=== PATIENT | male | born 1995 | race Hispanic/Latino ===

== ENCOUNTER → 2023-11-30 09:07 | Outpatient (REF) | payer OTHER, SELFPAY ==
[2023-11-30 10:22] LABS: Blood Urea Nitrogen 14 mg/dl (9-20); Calcium 9.5 mg/dl (8.4-10.2); Carbon Dioxide 28 mmol/L (22-30); Chloride 104 mmol/L (98-107); Glucose 97 mg/dl (70-99); Potassium 4.5 mmol/L (3.5-5.1); Sodium 137 mmol/L (135-145); eGFR > 60.00
[2023-11-30 10:38] LABS: Free T4 0.86 ng/dl (0.78-2.19); Vitamin D, 25-OH*** 35.8 ng/mL (30-80)
[2023-11-30 10:52] LABS: TSH 1.46 uIU/ml (0.47-4.68)
[2023-11-30 12:14] LABS: Glycohemoglobin (HgbA1c) 5.7 % (4.0-5.6)
== END ==
LOC: REG 09:07
PROVIDERS: ATTENDING PHYSICIAN Nurse Practitioner Adult Health
DX: E03.9 Hypothyroidism, unspecified (principal); E55.9 Vitamin D deficiency, unspecified; R73.01 Impaired fasting glucose
CPT/HCPCS: 36415; 80048; 82306; 83036; 84439; 84443

== ENCOUNTER → 2023-12-03 10:32 | Outpatient (REF) | payer OTHER, SELFPAY ==
[2023-12-04 13:41] LABS: H. pylori Breath Test Negative (Negative)
== END ==
LOC: REG 10:32
PROVIDERS: ATTENDING PHYSICIAN Nurse Practitioner Adult Health
DX: A04.8 Other specified bacterial intestinal infections (principal)
CPT/HCPCS: 36415; 83013

== ENCOUNTER → 2024-01-04 08:34 | Outpatient (REF) | payer OTHER, SELFPAY ==
[2024-01-04 09:52] LABS: IgA 319 mg/dl (70-400)
[2024-01-05 23:07] LABS: Endomysial IgA Antibody Titer <1:10 (<1:10)
== END ==
LOC: CLINIC 08:34
PROVIDERS: ATTENDING PHYSICIAN Nurse Practitioner Adult Health
DX: R10.13 Epigastric pain (principal); R14.0 Abdominal distension (gaseous)
CPT/HCPCS: 36415; 82784; 83516; 86231

== ENCOUNTER → 2024-01-28 08:30 | Outpatient (REF) | payer OTHER, SELFPAY | LOC: RAD 08:30 | PROVIDERS: ATTENDING PHYSICIAN Nurse Practitioner Adult Health | DX: R10.13 Epigastric pain (principal); R14.0 Abdominal distension (gaseous) | CPT/HCPCS: 76700 ==

== ENCOUNTER → 2024-04-07 06:26 | Day surgery (SDC) | payer OTHER, SELFPAY | LOC: GI 06:26 | PROVIDERS: ATTENDING PHYSICIAN Internal Medicine Gastroenterology | DX: R10.13 Epigastric pain (principal); K29.50 Unspecified chronic gastritis without bleeding | CPT/HCPCS: 43239; 88305; 88342 ==

== ENCOUNTER 2024-11-10 06:21 | Day surgery (SDC) | payer OTHER, SELFPAY | END 2024-11-10 14:07 | disposition home or self-care (01) | LOC: GI 06:21 | PROVIDERS: ATTENDING PHYSICIAN Internal Medicine Gastroenterology | DX: R19.4 Change in bowel habit (principal); K64.8 Other hemorrhoids | CPT/HCPCS: 45380; 88305 ==

== ENCOUNTER → 2025-06-05 09:59 | Outpatient (REF) | payer OTHER, SELFPAY ==
[2025-06-05 11:14] LABS: ALT (SGPT) 23 U/L (0-50); AST (SGOT) 23 U/L (17-59); Albumin 4.4 g/dl (3.5-5.0); Alkaline Phosphatase 54 U/L (38-126); Blood Urea Nitrogen 11 mg/dl (9-20); Calcium 9.9 mg/dl (8.4-10.2); Carbon Dioxide 30 mmol/L (22-30); Chloride 105 mmol/L (98-107); Glucose 98 mg/dl (70-99); Potassium 4.5 mmol/L (3.5-5.1); Sodium 140 mmol/L (135-145); Total Protein 7.3 g/dl (6.3-8.2); eGFR > 60.00
[2025-06-05 13:17] LABS: Glycohemoglobin (HgbA1c) 5.2 % (4.0-5.6)
[2025-06-05 15:33] LABS: Vitamin D, 25-OH*** 39.2 ng/mL (30-80)
[2025-06-05 15:46] LABS: TSH 6.74 uIU/ml (0.47-4.68)
== END ==
LOC: CLINIC 09:59
PROVIDERS: ATTENDING PHYSICIAN Nurse Practitioner Adult Health
DX: E03.9 Hypothyroidism, unspecified (principal); E55.9 Vitamin D deficiency, unspecified; R73.03 Prediabetes
CPT/HCPCS: 36415; 80053; 82306; 83036; 84439; 84443